=== PATIENT | male | born 2000 | race African-American/Black ===

== ENCOUNTER 2020-03-25 17:00 | Emergency (ER) | payer SELFPAY ==
[~2020-03-25] VITALS: Ht 177.8 cm; Wt 74.0 kg
[2020-03-25 18:55] VITALS: BP 125/74
== END 2020-03-25 19:16 | disposition home or self-care (01) ==
LOC: ER 17:00
DX: J02.9 Acute pharyngitis, unspecified (principal)
CPT/HCPCS: 99282

== ENCOUNTER 2023-11-16 18:05 | Emergency (ER) | payer SELFPAY ==
[~2023-11-16] VITALS: Ht 182.9 cm; Wt 88.5 kg
[2023-11-16 18:34] VITALS: O2SAT 100
[2023-11-16] MEDS ORDERED: MED4 MT (21:00)
[2023-11-16 21:14] VITALS: BP 126/86; PULSE 64; RESP 16; TEMP 98.3
== END 2023-11-16 21:15 | disposition home or self-care (01) ==
LOC: ER 18:05
DX: J02.9 Acute pharyngitis, unspecified (principal)
CPT/HCPCS: 87070; 87430; 99283

== ENCOUNTER 2023-11-19 12:35 | Emergency (ER) | payer SELFPAY ==
[~2023-11-19] VITALS: Ht 182.9 cm; Wt 88.0 kg
[~2023-11-19 12:35] MED LIST: MED4 MT
[2023-11-19 12:42] VITALS: O2SAT 99
[2023-11-19] MEDS: HYDROCODONE/ACETAMINOPHEN 5/325MG TABLET PO ONE (13:15)
[2023-11-19] MEDS ORDERED: AMOX500T2 MT (13:15)
[2023-11-19] MEDS: KETOROLAC 30MG/ML VIAL IM ONE (13:15)
[2023-11-19] MEDS ORDERED: IBUP-2030 MT (13:15)
[2023-11-19 14:25] VITALS: BP 145/78; PULSE 95; RESP 16; TEMP 97.9
== END 2023-11-19 14:27 | disposition home or self-care (01) ==
LOC: ER 14:21
DX: J02.0 Streptococcal pharyngitis (principal)
CPT/HCPCS: 99283; 96372; J1885

== ENCOUNTER 2024-10-12 14:33 | Emergency (ER) | payer SELFPAY ==
[~2024-10-12] VITALS: Ht 182.9 cm; Wt 81.6 kg
[~2024-10-12 14:33] MED LIST changes: +AMOX500T2 MT; +IBUP-2030 MT; -MED4 MT; +METH4TAB95 MT
[2024-10-12 14:36] VITALS: O2SAT 98
[2024-10-12 14:42] VITALS: BP 135/87; PULSE 76; RESP 56; TEMP 98.8; O2SAT 16
[2024-10-12] MEDS: DEXAMETHASONE 10 MG/ML VIAL IV ONE (17:55)
== END 2024-10-12 18:00 | disposition home or self-care (01) ==
LOC: ER 14:33
DX: B34.9 Viral infection, unspecified (principal); R05.9 Cough, unspecified
CPT/HCPCS: 99283; 96374; J1100